=== PATIENT | female | born 1960 | race Caucasian/White ===

== ENCOUNTER 2021-09-19 14:52 | Outpatient (REF) | payer OTHER, BC, SELFPAY ==
--- NOTE | ~2021-09-19 | US_ITS ---
EXAMINATION: Directed extremity ultrasound behind the knee left. CLINICAL INFORMATION: Pain COMPARISON: None TECHNIQUE: Real-time imaging by the language interpreter. Imaging behind the knee demonstrates a probable Marino's cyst. Measures 3.4 x 0.7 x 1 cm. US/US venous duplex LE IMPRESSION: Please note that this is not a Doppler exam of the deep veins of the left lower extremity. Focus is behind the knee on the left. Directed ultrasound behind the knee does demonstrate a Marino's cyst
== END 2021-09-19 14:53 | disposition home or self-care (01) ==
LOC: HO.US 14:52
PROVIDERS: Visit Provider Hospitalist
DX: M25.562 Pain in left knee (principal)
CPT/HCPCS: 93971